=== PATIENT | female | born 1960 | race Caucasian/White ===

== ENCOUNTER → 2017-01-26 | Outpatient (CLI) | payer OTHER | LOC: RAD 13:29 | DX: M25.521 Pain in right elbow (principal) ==

== ENCOUNTER → 2017-01-28 | Outpatient (CLI) | payer OTHER | LOC: MRI | DX: M25.521 Pain in right elbow (principal) ==

== ENCOUNTER → 2018-01-24 | Outpatient (CLI) | payer OTHER | LOC: MRI 12:59 | DX: M48.02 Spinal stenosis, cervical region (principal); M50.121 Cervical disc disorder at C4-C5 level with radiculopathy; M12.88 Other specific arthropathies, not elsewhere classified, other specified site ==

== ENCOUNTER → 2019-08-31 | Outpatient (CLI) | payer OTHER ==
[~2019-08-31] VITALS: Ht 170.2 cm; Wt 61.7 kg
[~2019-08-31] MED LIST: PREMPRO 0.45-11 EACH IM; PROGESTERONE100 MG PO; SPIRONOLACTONE25 MG PO
--- NOTE | 2019-08-31 17:51 | P ---
[facility] [place] [address] PROCEDURE REPORT Name: PASCALE COELHO Room #: REG [facility]#: [id number] Admission: 08/31/19 Attend Phys: Buddy Slade MD Discharge: Date of : 58 Report #: [id number] THIS REPORT FOR: cc: MARYELLEN - Dania family physician/PCP MARYELLEN - No family physician/PCP Buddy Slade MD ~ CC: [facility] physician/PCP Buddy Slade DATE OF SERVICE: 08/31/2019 BRIEF HISTORY: The patient is a 58-year-old woman who has had recent change in bowel habits with multiple loose stools. She also has had approximately a 10-pound weight loss. PREOPERATIVE DIAGNOSES: Change in bowel habits and weight loss. POSTOPERATIVE DIAGNOSIS: Normal colonoscopy to terminal ileum. MEDICATIONS: Deep sedation with propofol per anesthesia. SPECIMENS: 1. Random biopsies, proximal colon, rule out colitis. 2. Random biopsies, distal colon and rectum, rule out colitis. ESTIMATED BLOOD LOSS: 3 mL. PROCEDURES: Colonoscopy to cecum and terminal ileum with biopsy. FINDINGS: Prior to propofol sedation, procedure of colonoscopy discussed with the patient as well as potential risks and its complications. She indicates she understands and desires to proceed. DESCRIPTION OF PROCEDURE: With the patient in left lateral decubitus position, digital examination was completed, which revealed no abnormalities. Subsequently, the Olympus video colonoscope was introduced in the rectum, advanced under direct vision to the cecum. Done with minimal difficulty. The cecum was identified by the ileocecal valve and the appendiceal orifice. I was able to visualize the distal segment of the terminal ileum, which was inspected and noted to be unremarkable. At that point, the scope was slowly withdrawn and careful circumferential views obtained. Upon slow withdrawal of the scope, the prep was excellent. The mucosa was within normal limits, normal vascular pattern, normal light reflex. As we withdrew the scope, no neoplastic inflammatory changes were seen. The colonic mucosa was within normal limits. No mucosal abnormalities were seen during this examination. I did not see evidence of diverticular disease. Random biopsies obtained of the proximal [address] [address] PROCEDURE REPORT Name: MELITONPASCALESOURAV GROVES Room #: REG [facility]..#: [id number] Admission: 08/31/19 Attend Phys: Buddy Slade MD Discharge: Date of : 58 Report #: [id number] colon as well as the distal colon to evaluate for microscopic inflammatory changes. Scope was withdrawn in the rectum and no abnormalities were seen. Upon retroflexion, no abnormalities were seen. Scope was withdrawn. The patient tolerated the procedure well. CONDITION OF THE PATIENT UPON DISCHARGE: Following procedure, the patient drowsy, aroused, conversant and will be discharged home when fully ambulatory. INSTRUCTIONS TO THE PATIENT AND FAMILY AT THE TIME OF DISCHARGE: No neoplastic inflammatory changes were seen. The etiology of her change in bowel habits with diarrheal stools is not clearly identified on this examination. We will follow up on biopsies. She did have a cholecystectomy many years ago. It has been about 13 years. Post-cholecystectomy diarrhea may be a consideration. Irritable bowel syndrome with diarrhea may be another consideration. We will follow up on biopsies and make further recommendations. In the meantime, we will empirically place her on dicyclomine 1 or 2 every 6 hours as needed for urgencies and stool frequency. In addition for screening purposes, I would suggest followup colon exam in 10 years. Last colonoscopy was 10 years ago. Withdrawal time from the cecum was 13 minutes 12 seconds. <ELECTRONICALLY SIGNED> By: Buddy Slade MD 08/31/19 1751 [id number] Buddy Slade MD /nt
--- NOTE | 2019-08-31 17:51 | P ---
[facility] [place] [address] [place] [address] PROCEDURE REPORT Name: PASCALE COELHO Room #: REG [facility]#: [id number] Admission: 08/31/19 Attend Phys: Buddy Slade MD Discharge: Date of : 58 Report #: [id number] THIS REPORT FOR: cc: MARYELLEN - Dania family physician/PCP MARYELLEN - Dania family physician/PCP Buddy Slade MD ~ CC: Wenceslao Silva MD [facility] physician/PCP Buddy Slade DATE OF SERVICE: 08/31/2019 BRIEF HISTORY: The patient is a 58-year-old woman who recently developed atypical chest pain. She has also developed a left upper quadrant discomfort. In addition, she has had problems with loose stools and diarrhea. She has also lost about 10 pounds. PREOPERATIVE DIAGNOSES: Chest pressure, abdominal pain, diarrhea, and weight loss. POSTOPERATIVE DIAGNOSIS: Moderate diffuse gastritis. MEDICATIONS: Deep sedation with propofol per anesthesia. SPECIMENS: 1. Random biopsies, small bowel, rule out celiac disease. 2. Biopsies of gastritis. ESTIMATED BLOOD LOSS: 3 mL. PROCEDURE: EGD with biopsy. FINDINGS: Prior to propofol sedation, procedure of upper endoscopy was discussed with the patient as well as potential risks and its complications. She indicates she understands and desires to proceed. DESCRIPTION OF PROCEDURE: With the patient in left lateral decubitus position, the Olympus video endoscope was inserted in the cervical esophagus under direct vision without difficulty. Examination of this organ through its entire style revealed normal esophageal mucosa down the squamocolumnar junction. No ulcers or erosions were seen. The squamocolumnar junction was inspected and noted to be unremarkable. There was no evidence of a hiatus hernia. The scope was advanced in the stomach, was examined on end view as well as retroflexed views. There was a pattern of diffuse gastritis with linear striations; however, there were no ulcers or erosions. There were no retained solids or liquids in the stomach to suggest gastroparesis. Upon retroflexion, the cardia was [facility] [address] [place] [address] PROCEDURE REPORT Name: MELITONPASCALE GERMAIN Room #: REG [facility]#: [id number] Admission: 08/31/19 Attend Phys: Buddy Slade MD Discharge: Date of : 58 Report #: [id number] unremarkable. Hiatus hernia was not seen. Scope was then advanced. The pylorus was unremarkable. Duodenal bulb was unremarkable. Duodenal sweep down to third portion was unremarkable. The duodenal papilla was identified and noted to be unremarkable. At that point, the scope was slowly withdrawn and careful circumferential views were obtained. Biopsies obtained of the small bowel to evaluate for celiac disease. Biopsies obtained of the gastritis as well. CONDITION OF THE PATIENT UPON DISCHARGE: Following procedure, the patient was drowsy and prepared for colonoscopy. INSTRUCTIONS TO THE PATIENT AND FAMILY AT THE TIME OF DISCHARGE: She has had atypical chest pain. She has also had some asthma-like symptoms and upper abdominal pain, findings as noted above. She reports that Nexium caused her to have heartburn symptoms. I think another trial of a PPI would be reasonable. I have her try pantoprazole 40 mg daily. If she continues to have symptoms, especially with regards to weight loss, imaging of the abdomen may be consideration as well. We will proceed with colonoscopy at this time. <ELECTRONICALLY SIGNED> By: Buddy Slade MD 08/31/19 1751 [id number] [id number] Buddy Slade MD /nt
--- NOTE | 2019-09-03 17:07 | PATH ---
[facility] [address] [place] [address] PATHOLOGY RPT PROCEDURE Name: PASCALE COELHO Room #: REG [facility]..#: [id number] Admission: 08/31/19 Date of : 58 Discharge: Report #: [id number] Path Case #: [id number] [facility] Accession Number: [id number] . 01 Material submitted: . PART A: small bowel - BX SMALL BOWEL PART B: stomach - BX GASTRITIS PART C: colon - RANDOM BX PROXIMAL COLON. Modifiers: proximal PART D: colon - RANDOM BX DISTAL COLON AND RECTUM. Modifiers: distal . 01 Clinical history: . Diarrhea, abdominal pain, chest pain, gastritis. . 02 Diagnosis: A. Small bowel mucosa, small bowel rule out celiac disease, endoscopic biopsy: - Mild nonspecific acute and chronic duodenitis associated with focal fundic-type metaplasia, compatible with peptic duodenitis. - Negative for significant villous blunting or increase in intraepithelial lymphocytes. . B. Gastric mucosa, gastritis rule out H. pylori, endoscopic biopsy: - Mild reactive gastropathy. - Negative for intestinal metaplasia or atrophy. - Negative for Helicobacter pylori (properly controlled immunohistochemical stain performed). . C. Large intestinal mucosa, random proximal colon, endoscopic biopsy: - Nonspecific changes including focal lamina propria hemorrhage, apoptosis as well as regenerative hyperplastic changes. - Negative for active cryptitis. - Scattered pigmented macrophages within lamina propria. - Negative for microscopic colitis. - Negative for dysplasia or malignancy. . D. Large intestinal mucosa, random distal colon and rectum, endoscopic biopsy: - Nonspecific changes including focal lamina propria hemorrhage, apoptosis as well as regenerative hyperplastic changes. - Negative for active cryptitis. - Scattered pigmented macrophages within lamina propria. - Negative for microscopic colitis. - Negative for dysplasia or malignancy. . (IUV:entry specialist; 09/03/2019) [facility] 09/03/2019 1402 Local . [address] [address] PATHOLOGY RPT PROCEDURE Name: PASCALE COELHO GERMAIN Room #: REG [facility].#: [id number] Admission: 08/31/19 Date of : 58 Discharge: Report #: [id number] Path Case #: [id number] Comment: Parts C and D: Findings may be suggestive of a resolved self-limited episode of colitis, bowel preparation, chronic diverticulitis, as well as medication/drug-induced colitis. Please correlate clinically and followup as indicated. (IUV:entry specialist; 09/03/2019) . 02 Electronically signed: . Kathia Bhatt MD, Pathologist NPI- [id number] . 01 Gross description: . A. Received in formalin labeled "Chad, Pascale, BX small bowel rule out celiac" is a 0.7 x 0.7 x 0.2 cm aggregate of burnett-brown soft tissue fragments. The specimen is submitted entirely in A1. . B. Received in formalin labeled "Vikaweisrael, Pascale, BX gastritis rule out H. pylori" is a 0.8 x 0.7 x 0.1 cm aggregate of burnett-brown soft tissue fragments. The specimen is submitted entirely in B1. . C. Received in formalin labeled "Vikaweisrael, Pascale, random BX proximal colon" is a 1.8 x 0.6 x 0.1 cm aggregate of burnett-brown soft tissue fragments. The specimen is submitted entirely in C1. . D. Received in formalin labeled "Mcsweyn, Pascale, random BX distal colon and rectum" is a 2.0 x 0.6 x 0.1 cm aggregate of burnett-brown soft tissue fragments. The specimen is submitted entirely in D1. ([facility]; 09/02/2019) [facility] 09/02/2019 1248 Local . 02 Pathologist provided ICD-10: K29.80, K31.9, K63.9 . 02 CPT . 225810, 691157, 503952, [id number] Performed at: [address], [place], [place] [id number] MD Robin Blackman MD Phone: [phone] Performed at: [address] [id number] MD Kathia Bhatt MD Phone: [phone]
== END | disposition home or self-care (01) ==
LOC: GI 06:54
DX: R19.4 Change in bowel habit (principal); R63.4 Abnormal weight loss; R19.7 Diarrhea, unspecified; K29.80 Duodenitis without bleeding; K31.9 Disease of stomach and duodenum, unspecified; K29.70 Gastritis, unspecified, without bleeding; K63.9 Disease of intestine, unspecified; R10.13 Epigastric pain; R07.89 Other chest pain; Z98.890 Other specified postprocedural states; Z90.49 Acquired absence of other specified parts of digestive tract; Z79.899 Other long term (current) drug therapy; Z91.040 Latex allergy status; Z88.8 Allergy status to other drugs, medicaments and biological substances; Z87.442 Personal history of urinary calculi
CPT/HCPCS: 62110; 62900

== ENCOUNTER → 2019-09-19 | Outpatient (CLI) | payer OTHER | LOC: CAT 14:15 | DX: R19.5 Other fecal abnormalities (principal); R63.4 Abnormal weight loss ==